=== PATIENT | female | born 1965 | race Caucasian/White ===

== ENCOUNTER 2019-04-27 22:59 | Emergency (ER) | payer OTHER ==
[~2019-04-27] VITALS: Ht 137.2 cm; Wt 56.7 kg
[2019-04-27] MEDS ORDERED: ASPIR 8181 MG PO (23:39)
[2019-04-27] MEDS ORDERED: PERIDEX15 ML SWISH&SPIT (23:40)
[2019-04-27] MEDS ORDERED: COLACE100 MG PO (23:41)
[2019-04-27] MEDS ORDERED: DEPAKOTE ER250 MG PO (23:41)
[2019-04-27] MEDS ORDERED: PROZAC20 MG PO (23:42)
[2019-04-27] MEDS ORDERED: FLONASE 0.05%50 MCG NASAL (23:42)
[2019-04-27] MEDS ORDERED: FISH OIL 1,001000 M2 PO (23:42)
[2019-04-27] MEDS ORDERED: SYNTHROID50 MCG PO (23:43)
[2019-04-27] MEDS ORDERED: LOXAPINE5 MG PO (23:43)
[2019-04-27] MEDS ORDERED: MELATIN3 MG PO (23:44)
[2019-04-27] MEDS ORDERED: MYRBETRIQ25 MG PO (23:44)
[2019-04-27] MEDS ORDERED: OYSTER SHELL 51 EACH PO (23:45)
[2019-04-27] MEDS ORDERED: CRESTOR20 MG PO (23:46)
[2019-04-27] MEDS ORDERED: ZANTAC 150MG T150 M1 PO (23:46)
[2019-04-27] MEDS ORDERED: PROTONIX40 M4 PO (23:46)
[2019-04-27] MEDS ORDERED: THERA M PLUS T1 EAC2 PO (23:47)
[2019-04-27] MEDS ORDERED: CPAP MISCELL (23:47)
[2019-04-27] MEDS ORDERED: [UNRECOGNIZED DRUG - SUPPLY] OTIC (23:48)
[2019-04-28 01:36] VITALS: BP 212/74
== END 2019-04-28 01:37 ==
LOC: ER 22:59
DX: S01.81XA Laceration without foreign body of other part of head, initial encounter (principal); S60.222A Contusion of left hand, initial encounter; I10 Essential (primary) hypertension; Z88.0 Allergy status to penicillin; Z88.2 Allergy status to sulfonamides; Z88.5 Allergy status to narcotic agent; Z88.1 Allergy status to other antibiotic agents; W06.XXXA Fall from bed, initial encounter; Y93.89 Activity, other specified; Y92.89 Other specified places as the place of occurrence of the external cause; Y99.8 Other external cause status